=== PATIENT | male | born 1990 | race Hispanic/Latino ===

== ENCOUNTER 2022-05-22 07:30 | Emergency (ER) | payer BC ==
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
[2022-05-22] MEDS ORDERED: ACETAMINOPHEN 325 MG TABLET ONE (08:48)
[2022-05-22] MEDS ORDERED: IBUPROFEN 400 MG TAB ONE (08:49)
--- NOTE | 2022-05-22 09:26 | RAD REPORT ---
EXAM DESCRIPTION: RAD - Knee Right 3 View - 05/22/2022 9:17 am CLINICAL HISTORY: PAIN, fall with trauma to the knee COMPARISON: No comparisonsNone. FINDINGS: No fracture, dislocation or periosteal reaction.No joint effusion seen. No joint space luz rowing. No foreign body or other soft tissue abnormality. IMPRESSION: Negative right knee. Clinical concerns for internal derangement or occult bony injury could be further assessed with MR im aging.
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
--- NOTE | 2022-05-22 09:38 | EDPHYS ---
Physician Documentation [facility] Name: Noe Deshpande Age: 31 yrs Sex: Male : 1990 Arrival Date: 05/22/2022 Time: 07:36 Bed 10 Private MD: ED Physician Brooklyn Zelaya HPI: 05/22 08:29 This 31 yrs old Male presents to ER via Wheelchair with complaints of Fall cp Injury, Knee Pain. 08:29 The patient presents with an injury, pain, that is acute, swelling, tenderness. cp 08:29 The complaints affect the right knee. Context: resulted from the patient falling, while cp walking, the patient can fully bear weight, the patient is able to ambulate, with moderate difficulty. Onset: The symptoms/episode began/occurred today. Modifying factors: the symptoms are aggravated by weight bearing, bending knee. Associated signs and symptoms: The patient has no apparent associated signs or symptoms. Patient reports slip and fall onto right knee causing him to strike knee against stair. Historical: - Allergies: 07:58 No Known Allergies; iw - Home Meds: 07:58 None [Active]; iw - PMHx: 07:58 None; iw - PSHx: 07:58 hand surgery; iw - Immunization history:: Adult Immunizations Client reports receiving the 2nd dose of the Covid vaccine. - Social history:: Smoking status: Patient/guardian denies using tobacco. ROS: 08:33 Constitutional: Negative for body aches, chills, fever, poor PO intake. cp 08:33 Neck: Negative for pain with movement, pain at rest. 08:33 Cardiovascular: Negative for chest pain, edema, palpitations. 08:33 Respiratory: Negative for cough, shortness of breath, wheezing. 08:33 Back: Negative for pain at rest, pain with movement. 08:33 MS/extremity: Positive for pain, of the right knee, Negative for deformity, paresthesias. 08:33 Skin: Negative for cellulitis, rash. 08:33 Neuro: Negative for altered mental status, headache, loss of consciousness, syncope, weakness. 08:33 All other systems are negative. Exam: 08:37 Constitutional: The patient appears in no acute distress, alert, awake, non-toxic, well cp developed, well nourished. 08:37 Head/Face: Normocephalic, atraumatic. cp 08:37 Neck: ROM/movement: is normal, is supple, without pain, no range of motions cp limitations, no nuchal rigidity. 08:37 Chest/axilla: Inspection: normal. 08:37 Cardiovascular: Rate: normal. 08:37 Respiratory: the patient does not display signs of respiratory distress, Respirations: normal, no use of accessory muscles, no retractions. 08:37 Abdomen/GI: Exam negative for discomfort, distension, guarding, Inspection: abdomen appears normal. 08:37 Back: pain, is absent, ROM is normal. 08:37 Musculoskeletal/extremity: ROM: limited passive range of motion due to pain, in the right knee, Joints: the right knee displays painful range of motion, tenderness to palpation noted anterior knee above and below patella with bony tenderness of patella, quadriceps and patella tendon intact. Vital Signs: 07:59 BP 115 / 63; Pulse 64; Resp 16; Pulse Ox 100% on R/A; Weight 77.11 kg; Height 5 ft. 7 iw in. (170.18 cm); Pain 8/10; 07:59 Body Mass Index 26.63 (77.11 kg, 170.18 cm) iw MDM: 08:09 Patient medically screened. cp 09:38 Data reviewed: vital signs, nurses notes, radiologic studies, plain films. cp 09:38 Differential diagnosis: dislocation, closed fracture, contusion, quadriceps tendon cp rupture, patella tendon rupture. Test interpretation: by ED physician or midlevel provider: plain radiologic studies. Counseling: I had a detailed discussion with the patient and/or guardian regarding: the historical points, exam findings, and any diagnostic results supporting the discharge/admit diagnosis, radiology results, the need for outpatient follow up, a orthopedic surgeon, to return to the emergency department if symptoms worsen or persist or if there are any questions or concerns that arise at home. 05/22 08:24 Order name: XRAY Knee RIGHT 3 view; Complete Time: 09:28 cp 05/22 09:28 Interpretation: Report reviewed. cp 05/22 09:36 Order name: Knee Immobilizer; Complete Time: 10:17 cp Administered Medications: 08:46 Drug: Ibuprofen 800 mg Route: PO; iw 09:45 Follow up: Response: No adverse reaction; Pain is decreased iw 08:46 Drug: Tylenol 650 mg Route: PO; iw 09:45 Follow up: Response: No adverse reaction; Pain is decreased iw Disposition Summary: 05/22/22 09:38 Discharge Ordered Location: Home cp Problem: new cp Symptoms: have improved cp Condition: Stable cp Diagnosis - Contusion of right knee cp Followup: cp - With: Lewis Grider MD - When: 2 - 3 days - Reason: Recheck today's complaints Discharge Instructions: - Discharge Summary Sheet cp - Contusion cp - Acute Knee Pain, Adult cp Forms: - Work release form iw - Medication Reconciliation Form cp - Thank You Letter cp - Antibiotic Education cp - Prescription Opioid Use cp Prescriptions: - Diclofenac Sodium 75 mg Oral Tablet Sustained Release - take 1 tablet by ORAL route 2 times per day; 30 tablet; Refills: 0, Product cp Selection Permitted Addendum: 05/23/2022 15:26 STAFF ATTESTATION STATEMENT: I was immediately available onsite in the emergency s d2 department for consultation in the care of this patient. I did not see or examine this patient. Brooklyn Zelaya MD. Signatures: Dispatcher [employer] Kim Phillips RN RN iw Rudy Shelby PA PA cp Brooklyn Zelaya MD MD sd2 Corrections: (The following items were deleted from the chart) 05/22 10:17 09:36 Crutches ordered. cp iw 05/23 08:32 08:29 MS/extremity: Positive for pain, of the right knee, Negative for deformity, cp paresthesias, cp 08:32 08:29 Constitutional: Negative for body aches, chills, fever, poor PO intake, cp cp 08:32 08:29 Cardiovascular: Negative for chest pain, edema, palpitations, cp cp 08:32 08:29 Respiratory: Negative for cough, shortness of breath, wheezing, cp cp 08:32 08:29 Back: Negative for pain at rest, pain with movement, cp cp 08:32 08:29 Neck: Negative for pain with movement, pain at rest, cp cp 08:32 08:29 Skin: Negative for cellulitis, rash, cp cp 08:32 08:29 Neuro: Negative for altered mental status, headache, loss of consciousness, cp syncope, weakness, cp 08:32 08:29 All other systems are negative, cp cp
[2022-05-22 10:43] VITALS: BP 115/63; O2SAT 100
== END 2022-05-22 10:17 | disposition home or self-care (01) ==
LOC: ER 07:30
DX: S80.01XA Contusion of right knee, initial encounter (principal)
CPT/HCPCS: 99283